=== PATIENT | female | born 1980 | race Caucasian/White ===

== ENCOUNTER 2022-08-11 06:10 | Emergency (ER) | payer BC ==
[2022-08-11] MEDS ORDERED: Ondansetron 4 MG/2 ML SDV IVPUSH ONE ×2 (06:36→07:00)
[2022-08-11] MEDS ORDERED: HYDROmorphone 1 MG/ML Syringe IVPUSH STA ×2 (06:36→06:53)
[2022-08-11] MEDS ORDERED: Sodium Chloride 0.9% 1,000 ML IV SCH ×2 (06:45→07:00)
[2022-08-11] MEDS ORDERED: Sodium Chloride 0.9% 1,000 ML ONE (06:58)
[2022-08-11] MEDS ORDERED: Ondansetron 4 MG/2 ML SDV ONE (06:59)
[2022-08-11] MEDS ORDERED: HYDROmorphone 1 MG/ML Syringe ONE (07:00)
[2022-08-11 07:21] LABS: ESTIMATED GFR 81 mL/min (>60)
[2022-08-11] MEDS ORDERED: Iopamidol 612 MG/ML 100 ML Bottle IVPUSH ONE (07:25)
[2022-08-11] MEDS ORDERED: Sodium Chloride 0.9% 10 ML Syringe FLUSH PRN (07:25)
== END 2022-08-11 09:15 | disposition home or self-care (01) ==
LOC: JD.ED 06:10
DX: N83.201 Unspecified ovarian cyst, right side (principal); R16.0 Hepatomegaly, not elsewhere classified; Z87.891 Personal history of nicotine dependence
CPT/HCPCS: 36415; 74177; 80053; 81001; 83690; 84703; 85007; 85027; 96361; 96374; 96375; 99284; J1170; J2405; J3490; J7030; Q9967